=== PATIENT | female | born 1950 | race Hispanic/Latino ===

== ENCOUNTER → 2019-05-15 | Outpatient (CLI) | payer BC | END | disposition home or self-care (01) | LOC: OIH 10:16 | PROVIDERS: ATTEND Internal Medicine | DX: S05.11XA Contusion of eyeball and orbital tissues, right eye, initial encounter (principal); X58.XXXA Exposure to other specified factors, initial encounter; Y93.89 Activity, other specified; Y92.89 Other specified places as the place of occurrence of the external cause; Y99.8 Other external cause status | CPT/HCPCS: 70260 ==